=== PATIENT | female | born 1990 | race Caucasian/White ===

== ENCOUNTER 2016-06-01 14:04 | Emergency (ER) | payer MEDICAID, OTHER ==
[~2016-06-01] VITALS: Ht 157.5 cm; Wt 69.5 kg
[~2016-06-01 14:04] MED LIST: ACET500T98 PO
[2016-06-01 14:11] VITALS: Ht 157.5 cm; Wt 69.5 kg
[2016-06-01] MEDS ORDERED: traMADol 50 MG TAB PO ONE (15:30)
[2016-06-01] MEDS ORDERED: IBUPROFEN 600 MG TAB PO ONE (15:30)
[2016-06-01 15:36] LABS: URINE BLOOD (Dip) POC 2+ (NEGATIVE)
--- NOTE | 2016-06-01 16:56 | RADRPT ---
PROCEDURE: Lumbar spine series CLINICAL INDICATION: Back pain TECHNIQUE: Three views of the lumbar spine are available for review COMPARISON: None available FINDINGS: There is mild straightening of the normal lumbar lordosis. Alignment is otherwise intact. No acute fracture or dislocation is seen. Vertebral body heights are well maintained. Intervertebral disk he ights are well maintained. Paraspinous soft tissues are grossly unremarkable. Incidental note is m adalgisa of an intrauterine contraceptive device. IMPRESSION: 1. Mild nonspecific straightening of the normal lumbar lordosis. 2. Otherwise unremarkable lumbar spine series. RPTAT: KK .Sharif Maldonado MD, MD Date Time Electronically viewed and signed by .Sharif Maldonado MD, MD on 06/01/2016 16:55 .B/
[2016-06-01] MEDS ORDERED: CEPH-443 PO (17:11)
[2016-06-01] MEDS ORDERED: TRAM50TA2 PO (17:11)
[2016-06-01] MEDS ORDERED: IBUP-1542 PO (17:11)
--- NOTE | 2016-06-01 17:14 | ERD ---
ER Documentation Chief Complaint Date/Time DATE: 06/01/16 TIME: 17:12 Chief Complaint back pain for couple of weeks; got worse today HPI This 25-year-old female presents with a two-week history of worsening low back pain. She denies any history of trauma or inciting events. She denies any urinary complaints, fevers, vomiting, bowel or bladder incontinence, weakness. Patient does have a small child at home. ROS All systems reviewed and are negative except as per history of present illness. Medications Home Meds Active Scripts Cephalexin* (Keflex*) 500 Mg Capsule, 500 MG PO QID for 5 Days, CAP Prov:SHLOMO FLORES MD 06/01/16 Tramadol HCl (Tramadol HCl) 50 Mg Tablet, 50 MG PO Q4 Y for PAIN, #20 TAB Prov:SHLOMO FLORES MD 06/01/16 Ibuprofen* (Motrin*) 600 Mg Tab, 600 MG PO Q6, #20 TAB Prov:SHLOMO FLORES MD 06/01/16 Reported Medications Acetaminophen (Tylenol) 500 Mg Tab, 500 MG PO q6 prn 10/25/11 Allergies Allergies: Coded Allergies: No Known Allergy (Unverified , 10/25/11) PMhx/Soc Medical and Surgical Hx: pt denies Surgical Hx History of Surgery: No Anesthesia Reaction: No Hx Neurological Disorder: Yes (migraine) Hx Respiratory Disorders: No Hx Cardiac Disorders: No Hx Psychiatric Problems: No Hx Miscellaneous Medical Probl: No Hx Alcohol Use: No Hx Substance Use: No Hx Tobacco Use: No Physical Exam Vitals Vital Signs Date Time Temp Pulse Resp B/P Pulse Ox O2 Delivery O2 Flow Rate FiO2 06/01/16 14:11 97.6 81 19 124/82 96 Physical Exam Const: [] Alert, [id number]. Head: Atraumatic Eyes: Normal Conjunctiva ENT: Normal External Ears, Nose and Mouth. Neck: Full range of motion..~ No meningismus. Resp: Clear to auscultation bilaterally Cardio: Regular rate and rhythm, no murmurs Abd: Soft, non tender, non distended. Normal bowel sounds Skin: No petechiae or rashes Back: No midline or flank tenderness. Generalized tenderness in the L5-S1 paraspinous muscles. No appreciable midline tenderness or deformities. Patient is amatory without deficits or weakness. Ext: No cyanosis, or edema Neur: Awake and alert Psych: Normal Mood and Affect Results 24 hrs Laboratory Tests Test 06/01/16 15:35 Bedside Urine Blood 2+ Bedside Urine Glucose (UA) Negative Bedside Urine Ketones (LAB) Negative Bedside Urine Leukocyte Esterase (L Trace Bedside Urine Nitrite (LAB) Negative Bedside Urine Protein (LAB) Negative Bedside Urine pH (LAB) 5.5 Current Medications Medications (Trade) Dose Ordered Sig/Marga Route PRN Reason Start Time Stop Time Status Last Admin Dose Admin Ibuprofen (Motrin) 600 mg ONCE ONCE PO 06/01/16 15:30 06/01/16 15:31 DC 06/01/16 15:37 Tramadol HCl (Ultram) 50 mg ONCE ONCE PO 06/01/16 15:30 06/01/16 15:31 DC 06/01/16 15:37 Procedures/MDM Urine shows trace leukocytes and 1+ hemoglobin. Patient has no nitrites, glucose. Patient was given ibuprofen 600 mg by mouth and tramadol 50 mg by mouth X-ray LS-Spine 3V Interpreted by me: Bones: [No fracture] Joints: [No dislocation] Foreign body: [None]. Patient has a normal lumbar spine x-ray Patient presents with 2 week history of progressive low back pain, likely musculoskeletal. She just has signs of UTI and will be treated for this although I doubt this is the cause of her symptoms. Signs or symptoms are not consistent fracture, dislocation, cauda equina syndrome, epidural abscess, pyelonephritis. Patient will be discharged home with a prescription ibuprofen, tramadol, Keflex instructions for back exercises. She should return for fevers , vomiting, new or worsening symptoms with primary care doctor this week. The patient was stable with no new complaints during the ER course. Clinically, there is no current evidence to suggest meningitis, sepsis, acute abdomen, pneumonia, acute coronary syndrome, pulmonary embolism, or any other emergent condition appearing to require further evaluation or hospitalization. The patient should certainly return for any new or worsening symptoms per the aftercare instructions. They should otherwise follow-up with her primary care doctor for reevaluation this week. Departure Diagnosis: Primary Impression: UTI (urinary tract infection) Urinary tract infection type: acute cystitis Hematuria presence: without hematuria Qualified Code: N30.00 - Acute cystitis without hematuria Additional Impression: Back pain Back pain location: low back pain Chronicity: acute Back pain laterality: bilateral Sciatica presence: without sciatica Qualified Code: M54.5 - Acute bilateral low back pain without sciatica Condition: Stable Patient Instructions: Understanding Urinary Tract Infections (UTIs), Back Exercises, Lumbar, Back Pain (Acute Or Chronic) Additional Instructions: Urine shows infection and we will treat for this, although likely not cause of pain. Recommend exercises at home and follow-up with primary doctor this week. Return for fevers, vomiting, new or worsening symptoms. SHLOMO FLORES MD Jun 01, 2016 17:13
[2016-06-01 17:23] VITALS: BP 111/68; PULSE 77; RESP 18
== END 2016-06-01 17:30 | disposition home or self-care (01) ==
LOC: FTE 14:04
DX: N30.00 Acute cystitis without hematuria (principal)
CPT/HCPCS: 72100; 81003; Z7502; Z7610

== ENCOUNTER 2018-08-01 01:17 | Emergency (ER) | payer SELFPAY ==
[~2018-08-01] VITALS: Wt 79.8 kg
[~2018-08-01 01:17] MED LIST changes: +CEPH-443 PO; +IBUP-1542 PO; +TRAM50TA2 PO
[2018-08-01] MEDS ORDERED: LORAZEPAM 1 MG TAB PO ONE (04:30)
[2018-08-01] MEDS ORDERED: CEPH-443 PO (05:04)
[2018-08-01] MEDS ORDERED: IBUP-1542 PO (05:04)
[2018-08-01] MEDS ORDERED: LORA1TAB PO (05:06)
[2018-08-01 05:15] VITALS: BP 137/89; PULSE 72; RESP 18
--- NOTE | 2018-08-03 21:35 | ERD ---
ER Documentation Chief Complaint Chief Complaint CWP, L HAND NUMBNESS X'S 1 DAY HPI 27-year-old female resenting to the emergency department complaining of chest pain which is sharp in nature intermittent for the past 1 day. She states symptoms are moderate in severity. She denies any shortness of breath. She denies having the symptoms in the past. She took no medication for relief of symptoms. She denies any recent travel. She does not use oral contraceptives. She denies smoking. No other symptoms reported at this time. ROS All systems reviewed and are negative except as per history of present illness. Medications Home Meds Active Scripts Lorazepam* (Lorazepam*) 1 Mg Tablet, 1 MG PO Q8, #7 TAB Prov:BHARATH LOPEZ PA-C 08/01/18 Ibuprofen* (Motrin*) 600 Mg Tab, 600 MG PO Q6, #30 TAB Prov:BHARATH LOPEZ PA-C 08/01/18 Cephalexin* (Keflex*) 500 Mg Capsule, 500 MG PO QID for 5 Days, CAP Prov:BHARATH LOPEZ PA-C 08/01/18 Cephalexin* (Keflex*) 500 Mg Capsule, 500 MG PO QID for 5 Days, CAP Prov:SHLOMO FLORES MD 06/01/16 Tramadol HCl (Tramadol HCl) 50 Mg Tablet, 50 MG PO Q4 PRN for PAIN, #20 TAB Prov:SHLOMO FLORES MD 06/01/16 Ibuprofen* (Motrin*) 600 Mg Tab, 600 MG PO Q6, #20 TAB Prov:SHLOMO FLORES MD 06/01/16 Reported Medications Acetaminophen (Tylenol) 500 Mg Tab, 500 MG PO q6 prn 10/25/11 Allergies Allergies: Coded Allergies: No Known Allergy (Unverified , 10/25/11) PMhx/Soc Medical and Surgical Hx: pt denies Surgical Hx History of Surgery: No Anesthesia Reaction: No Hx Neurological Disorder: Yes (Migraine) Hx Respiratory Disorders: No Hx Cardiac Disorders: No Hx Psychiatric Problems: No Hx Miscellaneous Medical Probl: No Hx Alcohol Use: No Hx Substance Use: No Hx Tobacco Use: No Smoking Status: Never smoker Physical Exam Vitals Vital Signs Date Temp Pulse Resp B/P (MAP) Pulse Ox O2 O2 Flow FiO2 Time Delivery Rate 08/01/18 98.1 72 18 137/89 100 Room Air 05:15 (105) 08/01/18 99.1 77 18 162/106 97 01:19 (124) Physical Exam Const: No acute distress Head: Atraumatic Eyes: Normal Conjunctiva ENT: Normal External Ears, Nose and Mouth. Neck: Full range of motion. No meningismus. Resp: Clear to auscultation bilaterally Cardio: Regular rate and rhythm, no murmurs Abd: Soft, non tender, non distended. Normal bowel sounds Skin: No petechiae or rashes Back: No midline or flank tenderness Ext: No cyanosis, or edema Neur: Awake and alert Psych: Normal Mood and Affect Result Diagram: 08/01/18 0325 08/01/18 0325 Results 24 hrs Laboratory Tests Test 08/01/18 01:45 08/01/18 01:47 08/01/18 03:25 POC Beta HCG, Qualitative NEGATIVE Bedside Urine pH (LAB) 6.5 Bedside Urine Protein (LAB) Negative Bedside Urine Glucose (UA) Negative Bedside Urine Ketones (LAB) Negative Bedside Urine Blood 1+ Bedside Urine Nitrite (LAB) Negative Bedside Urine Leukocyte Esterase Negative (L White Blood Count 6.4 10^3/ul Red Blood Count 4.36 10^6/ul Hemoglobin 13.3 g/dl Hematocrit 39.0 % Mean Corpuscular Volume 89.4 fl Mean Corpuscular Hemoglobin 30.5 pg Mean Corpuscular 34.1 g/dl Hemoglobin Concent Red Cell Distribution Width 12.0 % Platelet Count 288 10^3/UL Mean Platelet Volume 10.9 fl Immature Granulocytes % 0.300 % Neutrophils % 50.0 % Lymphocytes % 29.8 % Monocytes % 11.1 % Eosinophils % 7.7 % Basophils % 1.1 % Nucleated Red Blood Cells % 0.0 /100WBC Immature Granulocytes # 0.020 10^3/ul Neutrophils # 3.2 10^3/ul Lymphocytes # 1.9 10^3/ul Monocytes # 0.7 10^3/ul Eosinophils # 0.5 10^3/ul Basophils # 0.1 10^3/ul Nucleated Red Blood Cells # 0.0 10^3/ul Sodium Level 140 mmol/L Potassium Level 4.2 mmol/L Chloride Level 108 mmol/L Carbon Dioxide Level 22 mmol/L Anion Gap 10 Blood Urea Nitrogen 14 mg/dl Creatinine 0.66 mg/dl Est Glomerular Filtrat Rate mL/min > 60 mL/min Glucose Level 104 mg/dl Calcium Level 9.1 mg/dl Troponin I < 0.012 ng/ml Current Medications Medications Dose Sig/Marga Start Time Status Last (Trade) Ordered Route PRN Stop Time Admin Dose Reason Admin Lorazepam 1 mg ONCE ONCE 08/01/18 DC 08/01/18 (Ativan) PO 04:30 04:36 08/01/18 04:31 [place] [id number] Radiology Main Line: [phone] DIAGNOSTIC IMAGING REPORT Patient: ESTELA BALDERAS : 1990 Age: 27 Sex: F MR #: [id number] DOS: 08/01/18 0322 Ordering MD: BHARATH LOPEZ PA-C Location: [facility] Room/Bed: PROCEDURE: XR Chest. CLINICAL INDICATION: Chest pain TECHNIQUE: AP portable upright chest was obtained COMPARISON: None. FINDINGS: Cardiomediastinal silhouette is normal. Pulmonary vasculature is normal. Lungs and costophrenic angles are clear. Bones and soft tissues are unremarkable. IMPRESSION: No evidence of acute cardiopulmonary disease. RPTAT:AAJJ Physician Umm Date Time Electronically viewed and signed by Physician Umm on 08/01/2018 03:57 BM/ CC: BHARATH LOPEZ PA-C [id number] Procedures/MDM 27-year-old female presenting to the emergency department with signs and symptoms most consistent with anxiety reaction. Patient was improved after administration of Ativan. Chest x-ray interpreted by the radiologist may be viewed above. EKG was not concerning for STEMI. PERC criteria was used to rule out pulmonary embolism. The patient presents with chest pain and I considered pulmonary embolism, aortic dissection, pneumothorax among other diagnoses. Evaluation for acute coronary syndrome was performed. Shared decision making occurred with patient and the decision has been made to discharge the patient for outpatient evaluation and functional study within 72 hours. Patient's blood pressure was elevated (>120/80) but appears stable without evidence of hypertension emergency or urgency. The patient is to follow-up and pursue outpatient monitoring and therapy with their primary care physician within 1 week and return immediately if they have any new, worsening, or concerning symptoms. Departure Diagnosis: Primary Impression: Chest wall pain Additional Impression: Anxiety reaction Condition: Fair Patient Instructions: Your Body's Response to Anxiety, Chest Wall Pain, Costochondritis Referrals: [facility] YOU HAVE RECEIVED A MEDICAL SCREENING EXAM AND THE RESULTS INDICATE THAT YOU DO NOT HAVE A CONDITION THAT REQUIRES URGENT TREATMENT IN THE EMERGENCY DEPARTMENT. FURTHER EVALUATION AND TREATMENT OF YOUR CONDITION CAN WAIT UNTIL YOU ARE SEEN IN YOUR DOCTORS OFFICE WITHIN THE NEXT 1-2 DAYS. IT IS YOUR RESPONSIBILITY TO MAKE AN APPOINTMENT FOR FOLOW-UP CARE. IF YOU HAVE A PRIMARY DOCTOR --you should call your primary doctor and schedule an appointment IF YOU DO NOT HAVE A PRIMARY DOCTOR YOU CAN CALL OUR PHYSICIAN REFERRAL HOTLINE AT IF YOU CAN NOT AFFORD TO SEE A PHYSICIAN YOU CAN CHOSE FROM THE FOLLOWING [facility] [address] [facility]. [facility] [address] [facility] [facility] [address] [facility] [facility] [address] [facility]. [facility] [address] [facility] [facility]. [address] Additional Instructions: Call your primary care doctor TOMORROW for an appointment during the next 1-2 days.See the doctor sooner or return here if your condition worsens before your appointment time. BHARATH LOPEZ PA-C August 03, 2018 21:35
== END 2018-08-01 05:17 | disposition home or self-care (01) ==
LOC: FTE 01:17
DX: R07.89 Other chest pain (principal); F41.1 Generalized anxiety disorder
CPT/HCPCS: 71045; 80048; 81003; 81025; 84484; 85025; 93005